=== PATIENT | male | born 1950 | race Caucasian/White ===

== ENCOUNTER 2020-04-01 01:15 | Emergency (ER) | payer MEDICARE ==
[2020-04-01] MEDS ORDERED: cefTRIAXone 1 GM Vial IM ONE (01:38)
--- NOTE | 2020-04-01 01:57 | EDM.PDOC ---
ED HPI GENERAL MEDICAL PROBLEM - General Stated Complaint: FALL Time Seen by Provider: 04/01/20 01:15 Source of Information: Reports: Patient History Limitations: Reports: No Limitations - History of Present Illness INITIAL COMMENTS - FREE TEXT/NARRATIVE: Patient presented to the ED because of a left shoulder injury. He fell yesterday and landed on his left shoulder. Since then he c/o pain and is unable to move his left shoulder. He is also here because of redness, pain,swelling of the the left ankle and foot. He has a low grade fever, otherwise, vitally stable. - Related Data Allergies Allergy/AdvReac Type Severity Reaction Status Date / Time Penicillins Allergy Cannot Verified 08/23/14 09:08 Remember Home Meds: Home Meds cephALEXin [Keflex] 500 mg PO TID #30 capsule 04/01/20 [Rx] Past Medical History - Past Health History Medical/Surgical History: Denies Medical/Surgical History Gastrointestinal History: Reports: GERD Oncologic (Cancer) History: Reports: Prostate Social & Family History - Family History Family Medical History: Noncontributory ED ROS GENERAL - Review of Systems Review Of Systems: See Below Constitutional: Reports: No Symptoms HEENT: Reports: No Symptoms Respiratory: Reports: No Symptoms Cardiovascular: Reports: No Symptoms Endocrine: Reports: No Symptoms : Reports: No Symptoms Musculoskeletal: Reports: No Symptoms Skin: Reports: Erythema, Wound Neurological: Reports: No Symptoms Psychiatric: Reports: No Symptoms ED EXAM, GENERAL - Physical Exam Exam: See Below Exam Limited By: No Limitations General Appearance: Alert, No Apparent Distress Eye Exam: Bilateral Eye: PERRL Ears: Normal External Exam Nose: Normal Inspection, Normal Mucosa Throat/Mouth: Normal Inspection, Normal Lips Head: Atraumatic, Normocephalic Neck: Normal Inspection, Supple, Non-Tender, Full Range of Motion Respiratory/Chest: No Respiratory Distress, Lungs Clear, Normal Breath Sounds, No Accessory Muscle Use, Chest Non-Tender Cardiovascular: Normal Peripheral Pulses, Regular Rate, Rhythm, No Edema, No Gallop, No JVD, No Murmur, No Rub GI/Abdominal: Normal Bowel Sounds, Soft, Non-Tender, No Organomegaly, No Distention, No Abnormal Bruit Back Exam: Normal Inspection, Full Range of Motion Extremities: Normal Inspection, Normal Range of Motion Neurological: Alert, Oriented, CN II-XII Intact Psychiatric: Normal Affect Skin Exam: Warm, Dry, Erythema Course - Vital Signs Text/Narrative:: xray left shoulder-see result Rpcephin 1 gm IM - Orders/Labs/Meds Orders: Active Orders 24 hr Category Date Time Status Shoulder Comp Lt [CR] Stat Exams 04/01/20 01:49 Ordered Meds: Medications Discontinued Medications Generic Name Dose Route Start Last Admin Trade Name Atul PRN Reason Stop Dose Admin Ceftriaxone Sodium 1 gm 04/01/20 01:38 Rocephin IM 04/01/20 01:39 ONETIME ONE Departure - Departure Time of Disposition: 02:30 Disposition: Home, Self-Care 01 Condition: Good Clinical Impression: Injury of left shoulder, Cellulitis - Discharge Information Prescriptions: cephALEXin [Keflex] 500 mg PO TID #30 capsule Additional Instructions: Please read discharge instructions on shoulder injury and cellulitis Start taking keflex today 500 mg 3 times daily for 10 days Take 2 aleves and 2 tylenol 500 mg every 12 hours as needed for pain Follow up in 5 days - My Orders Last 24 Hours: My Active Orders 04/01/20 01:49 Shoulder Comp Lt [CR] Stat - Assessment/Plan Last 24 Hours: My Active Orders 04/01/20 01:49 Shoulder Comp Lt [CR] Stat
[2020-04-01 02:17] VITALS: BP 162/80; PULSE 86
--- NOTE | 2020-04-01 11:21 | CR ---
INDICATION: Left shoulder injury/fall. LEFT SHOULDER COMPLETE: Four views of the left shoulder revealed a slightly oblique fracture near the midshaft of the clavicle with offset of the distal fracture fragment approximately 19 mm cranially, and overriding of the fracture fragments approximately 15 mm. The AC joint shows evidence of degenerative change as does the glenohumeral joint - relatively mild in both cases. No other acute bone or joint abnormality was identified. MTDD
== END 2020-04-01 02:40 | disposition home or self-care (01) ==
LOC: FB.ED 01:15
DX: S49.92XA Unspecified injury of left shoulder and upper arm, initial encounter (principal); L03.116 Cellulitis of left lower limb; Z88.0 Allergy status to penicillin; W19.XXXA Unspecified fall, initial encounter; Y92.009 Unspecified place in unspecified non-institutional (private) residence as the place of occurrence of the external cause
CPT/HCPCS: 73030; 96372; 99283; J0696

== ENCOUNTER 2022-01-24 00:02 | Emergency (ER) | payer MEDICARE ==
[2022-01-24 00:58] LABS: ESTIMATED GFR 63 mL/min (>60)
[2022-01-24] MEDS ORDERED: Enalaprilat 1.25 MG/ML SDV IVPUSH ONE (01:07)
[2022-01-24 02:26] VITALS: BP 153/81; PULSE 56
== END 2022-01-24 02:19 | disposition home or self-care (01) ==
LOC: FB.ED 00:02
DX: R25.2 Cramp and spasm (principal); I10 Essential (primary) hypertension; Z88.0 Allergy status to penicillin
CPT/HCPCS: 70450; 80048; 84484; 85025; 86140; 93005; 93010; 96374; 99282; 99285-25

== ENCOUNTER 2023-05-03 06:05 | Emergency (ER) | payer MEDICARE ==
[2023-05-03] MEDS ORDERED: Sodium Chloride 0.9% 1,000 ML IV SCH (06:30)
[2023-05-03 06:33] VITALS: BP 142/69; PULSE 68
[2023-05-03 06:57] LABS: MEAN CORPUSCULAR HGB CONC 33.3 g/dL (28.7-35.3); MEAN CORPUSCULAR VOLUME 90.2 fL (80.8-98.7); MEAN PLATELET VOLUME 9.5 fL (6.7-11.0); PLATELET COUNT,PLT 120 x10(3)uL (117-477); RED BLOOD CELL COUNT 4.65 x10(6)uL (3.90-5.90); RED CELL DISTRIBUTION WIDTH 14.5 % (12.4-15.0); WHITE BLOOD CELL COUNT,WBC 7.6 x10-3/uL (3.2-10.1)
[2023-05-03 07:00] LABS: BLOOD UREA NITROGEN,BUN 13 mg/dL (7-18); BUN/CREATININE RATIO 14.4 (9-20); CALCIUM 8.9 mg/dL (8.6-10.2); CARBON DIOXIDE,CO2 30 mmol/L (21-32); CHLORIDE,CL 106 mmol/L (100-110); CREATININE 0.9 mg/dL (0.70-1.30); EST CRCL DRUG DOSING (CG) 68.61 mL/min; ESTIMATED GFR 89 mL/min (>60); GLUCOSE RANDOM 140 mg/dL (80-116); SODIUM,NA 141 mmol/L (135-145)
[2023-05-03 07:06] LABS: A/G RATIO 1.2; ALANINE AMINOTRANSFERASE,ALT 37 U/L (12-36); ALBUMIN 3.5 g/dL (3.2-4.6); ALKALINE PHOSPHATASE 88 IU/L (56-112); ASPARTATE AMNIOTRANSFERASE,AST 23 IU/L (5-25); BILIRUBIN TOTAL 0.5 mg/dL (0.1-1.3); PROTEIN TOTAL,TP 6.4 g/dL (6.0-8.0)
[2023-05-03 07:09] LABS: LYMPHOCYTES PERCENT MAN 6 % (13-37); MONOCYTES PERCENT MAN 8 % (4-12); SEG NEUTROPHILS PERCENT MAN 86 % (46-82)
[2023-05-03 08:28] LABS: APPEARANCE,URINE CLOUDY (CLEAR); BACTERIA,URINE MANY (NS); BILIRUBIN,URINE NEGATIVE (NEGATIVE); COLOR,URINE YELLOW (YELLOW); GLUCOSE,URINE NORMAL (NORMAL); KETONES,URINE 15 mg/dL (NEGATIVE); LEUKOCYTE ESTERASE,URINE NEGATIVE (NEGATIVE); NITRITE,URINE NEGATIVE (NEGATIVE); OCCULT BLOOD,URINE NEGATIVE (NEGATIVE); PROTEIN,URINE NEGATIVE (NEGATIVE); SQUAMOUS EPITHELIAL CELLS,UR OCCASIONAL (NS,R,O); UROBILINOGEN,URINE NORMAL (NEGATIVE); WBC,URINE 0-5 (0-5)
[2023-05-03 08:29] LABS: AMORPHOUS SEDIMENT,URINE FEW
[2023-05-03 08:49] LABS: INFLUENZA A NAA NEGATIVE (NEGATIVE); INFLUENZA B NAA NEGATIVE (NEGATIVE)
[2023-05-03 08:51] LABS: CORONAVIRUS COVID-19 NAA POSITIVE (NEGATIVE)
== END 2023-05-03 09:05 | disposition home or self-care (01) ==
LOC: FB.ED 06:05
DX: E86.0 Dehydration (principal); U07.1 COVID-19; K21.9 Gastro-esophageal reflux disease without esophagitis; Z88.0 Allergy status to penicillin; Z79.899 Other long term (current) drug therapy
CPT/HCPCS: 0240U; 36415; 80053; 81001; 84484; 85025; 93005; 93010; 96360; 99283; 99285-25; J7030

== ENCOUNTER 2023-05-03 14:38 | Inpatient (IN) | payer MEDICARE ==
[2023-05-03] MEDS ORDERED: Sodium Chloride 0.9% 1,000 ML IV SCH (15:00)
[2023-05-03] MEDS ORDERED: Enoxaparin 40 MG/0.4 ML Syringe SUBCUT SCH (18:00)
[2023-05-03] MEDS ORDERED: LORazepam 1 MG Tab PO ONE (20:14)
[2023-05-03] MEDS ORDERED: OLANZapine 10 MG Vial IM ONE (20:14)
[2023-05-03] MEDS: Acetaminophen 325 MG Tab PO PRN (22:38)
[2023-05-04] MEDS: Pantoprazole 40 MG Tab.CR PO SCH (06:12)
[2023-05-04 07:22] LABS: BASOPHILS PERCENT AUTO 0.3 % (0.3-3.8); EOSINOPHILS PERCENT AUTO 0.2 % (0.1-6.8); HEMATOCRIT 41.6 % (38.3-50.1); LYMPHOCYTES ABSOLUTE AUTO 0.7 x10-3/uL (0.5-4.5); LYMPHOCYTES PERCENT AUTO 18.7 % (15.8-45.3); MEAN CORPUSCULAR HEMOGLOBIN 30.2 pg (27.0-33.3); MEAN CORPUSCULAR HGB CONC 33.6 g/dL (28.7-35.3); MEAN CORPUSCULAR VOLUME 89.9 fL (80.8-98.7); MEAN PLATELET VOLUME 9.5 fL (6.7-11.0); MONOCYTES ABSOLUTE AUTO 0.4 x10-3/uL (0.0-1.2); MONOCYTES PERCENT AUTO 11.2 % (5.5-15.2); NEUTROPHILS ABSOLUTE AUTO 2.8 x10-3/uL (1.7-6.9); NEUTROPHILS PERCENT AUTO 69.6 % (40.3-71.8); PLATELET COUNT,PLT 97 x10(3)uL (117-477); RED BLOOD CELL COUNT 4.62 x10(6)uL (3.90-5.90); RED CELL DISTRIBUTION WIDTH 14.8 % (12.4-15.0)
[2023-05-04 07:30] LABS: BLOOD UREA NITROGEN,BUN 15 mg/dL (7-18); BUN/CREATININE RATIO 18.8 (9-20); CALCIUM 8.5 mg/dL (8.6-10.2); CARBON DIOXIDE,CO2 31 mmol/L (21-32); CHLORIDE,CL 107 mmol/L (100-110); CREATININE 0.8 mg/dL (0.70-1.30); EST CRCL DRUG DOSING (CG) 83.02 mL/min; ESTIMATED GFR 92 mL/min (>60); GLUCOSE RANDOM 95 mg/dL (80-116); POTASSIUM,K 3.6 mmol/L (3.5-5.3); SODIUM,NA 143 mmol/L (135-145)
[2023-05-04] MEDS: Acetaminophen 325 MG Tab PO PRN ×2 (09:10→21:10)
[2023-05-05] MEDS: Pantoprazole 40 MG Tab.CR PO SCH (06:16)
[2023-05-06] MEDS: Pantoprazole 40 MG Tab.CR PO SCH (06:30)
[2023-05-06 10:03] VITALS: BP 142/72; PULSE 78
== END 2023-05-06 10:30 | disposition home or self-care (01) | DRG 178 ==
LOC: FB.MS 14:53
PROVIDERS: ADMIT Family Medicine; ATTEND Family Medicine
DX: U07.1 COVID-19 (principal); G93.49 Other encephalopathy; K21.9 Gastro-esophageal reflux disease without esophagitis; I10 Essential (primary) hypertension; W18.30XA Fall on same level, unspecified, initial encounter; Y92.008 Other place in unspecified non-institutional (private) residence as the place of occurrence of the external cause; Z88.0 Allergy status to penicillin; Z79.899 Other long term (current) drug therapy
CPT/HCPCS: 0240U; 36415; 70450; 70551; 71045; 80048; 80053; 81001; 84484; 85025; 93005; 93010; 96360; 97116-GP; 97161-GP; 97530-GP; 99283; 99285-25; A9270-GY; J1650; J2405; J7030

== ENCOUNTER 2025-05-22 17:09 | Emergency (ER) | payer MEDICARE ==
[2025-05-22] MEDS: Diphtheria,Pertussis(Acell),Tetanus Vaccine 0.5 ML Syringe IM ONE (17:45)
[2025-05-22 20:24] VITALS: BP 173/77; PULSE 59
== END 2025-05-22 17:52 | disposition home or self-care (01) ==
LOC: FB.ED 17:09
DX: S01.81XA Laceration without foreign body of other part of head, initial encounter (principal); Z23 Encounter for immunization; Z79.899 Other long term (current) drug therapy; W01.198A Fall on same level from slipping, tripping and stumbling with subsequent striking against other object, initial encounter
CPT/HCPCS: 12013; 90471; 90715; 99282-25